=== PATIENT | female | born 2000 | race African-American/Black ===

== ENCOUNTER 2023-07-04 18:22 | Emergency (ER) | payer MEDICAID, SELFPAY ==
--- NOTE | 2023-07-04 18:24 | ED.FEMALEGU ---
HPI - Female Genitourinary General Chief complaint: Urogenital-Female Stated complaint: Yeast infection Time Seen by Provider: 07/04/23 18:24 Source: patient Mode of arrival: ambulatory Limitations: no limitations History of Present Illness HPI Narrative: Simin is a 23-year-old female patient presenting to the clinic today with complaints of possible yeast infection. She reports she is having light yellow/white vaginal discharge for the past 2 days. Has slight vaginal discomfort as well. Is wanting to be tested for STIs as well as bacterial vaginosis and yeast. She is sexually active. Last sexual activity was Tuesday Related Data Home Medications Medication Instructions Recorded Confirmed norethindrone 1 mg-ethinyl 1 tablet PO DAILY 07/04/23 07/04/23 estradiol 20 mcg (24)-iron 75 mg (4) tablet () Allergies Allergy/AdvReac Type Severity Reaction Status Date / Time No Known Allergies Allergy Verified 07/04/23 18:36 Review of Systems Review of Systems: Pertinent positives per HPI. Patient denies any fever, chills, rash, headache, visual changes, dizziness, cough, runny nose, sore throat, shortness of breath, chest pain, palpitations, nausea, vomiting, diarrhea, constipation, abdominal pain, or any urinary issues. PMFSH Comments At the time of my signature, I reviewed and agree with the nursing past medical, surgical, social, and family history. There is no relevant family history pertinent to the patient complaint. Exam Narrative: General: Well-developed, well nourished, in no apparent distress Head: Normocephalic, atraumatic. Cardio: Regular rate and rhythm, s1 and s2 normal, no murmur appreciated. Resp: Clear to auscultation bilaterally, no rhonchi, rales, wheezing or rubs. Abdomen: Soft, pliable, bowel sounds present in all quadrants, non-tender to palpation, no CVAT tenderness. : Pelvic exam performed with ([place] RN) at bedside. Verbal consent obtained from patient. Normal external female genitalia without lesions or masses, Urinary meatus: patent without discharge, Vagina: No lesions, masses, white vaginal discharge in pelvic vault Cervix: pink without mass, lesions, discharge, or tenderness. Adnexa: without palpable mass or tenderness. Course Course Emergency Course: Portions of this record may have been created with voice recognition software. Level of Care: Express Care Visit Vital Signs Vital signs: Vital signs reviewed MDM - Female Genitourinary MDM Narrative Medical decision making narrative: At the time of visit patient is resting comfortably on the exam table. You dirty urine was obtained to test for chlamydia, gonorrhea, and Trichomonas as well these. E swab was used to test for BV. White discharge was noted in the pelvic-likely BV. Prescription for metronidazole was sent to the pharmacy. Patient may use another dose of miconazole if needed for probable yeast. Will await for STI testing to come back to treat appropriately. Supportive measures were discussed with the patient she voiced understanding discharge instructions and agrees to treatment plan. Differential Diagnosis Differential diagnosis: Likely bacterial vaginosis, trichomoniasis, cervicitis, ovarian cyst, vaginitis and other (Sexually transmitted infections) Discharge Plan Discharge Clinical Impression: Vaginal discharge Patient Disposition: Home, Self-Care Condition: Stable Instructions: Antibiotic Form, Sexually Transmitted Diseases (ED), Vaginal Discharge (ED) Additional Instructions: Take Flagyl as prescribed We have tested/treated you for STIs in the clinic today. Avoid any sexual activity- includes oral, anal, or vaginal intercourse until you get results back and have completed any additional recommended treatment regimens. We will contact you if testing is positive and make sure your treatment was appropriate for the type of STI. Follow-up with your PCP in 3-5 days
[2023-07-04 18:30] VITALS: BP 124/89; PULSE 86; RESP 16; TEMP 36.8; O2SAT 100
[2023-07-05 20:19] LABS: Trichomonas Vag PCR NOT DETECTED (NOT DETECTE)
[2023-07-05 20:41] LABS: Chlamydia trachomatis NOT DETECTED (NOT DETECTE); Neisseria gonorrhoeae PCR NOT DETECTED (NOT DETECTE)
== END 2023-07-04 19:04 | disposition home or self-care (01) ==
PROVIDERS: Emergency Provider Nurse Practitioner Family
DX: N89.8 Other specified noninflammatory disorders of vagina (principal)
CPT/HCPCS: 81513; 87077; 87088; 87102; 87491; 87591; 87661; 99214; G0463